=== PATIENT | male | born 1965 | race Two or more races ===

== ENCOUNTER 2020-02-23 19:37 | Inpatient (IN) | payer BC, OTHER ==
[~2020-02-23] VITALS: Ht 170.2 cm; Wt 94.5 kg
[~2020-02-23 19:37] MED LIST: ASPI-543 PO; OMEP20CA74 PO
[2020-02-23 20:52] LABS: Basophils # (auto) 0 10 ^3/uL (0-0.2); Basophils % (auto) 0.2 % (0.0-2.0); Eosinophils # (auto) 0 10 ^3/uL (0-0.8); Eosinophils % (auto) 0.4 % (0.0-7.0); Hematocrit 40.2 % (41.0-53.0); Lymphocytes # (auto) 0.5 10 ^3/uL (0.4-5.4); Lymphocytes % (auto) 5.9 % (10.0-50.0); Mean Corpuscular Hemoglobin 31.6 pg (28.0-32.0); Mean Corpuscular Hgb Conc. 34.7 g/dL (32.0-36.0); Mean Corpuscular Volume 91.1 fL (80.0-100.0); Monocytes # (auto) 0.7 10 ^3/uL (0-1.3); Monocytes % (auto) 7.6 % (0.0-12.0); Neutrophils # (auto) 7.8 10 ^3/uL (1.6-8.6); Neutrophils % (auto) 85.9 % (37.0-80.0); Platelet Count (auto) 310 10^3/uL (140-450); Red Blood Cells 4.41 10^6/uL (4.5-5.90); White Blood Cell 9.1 10^3/uL (4.4-10.8)
[2020-02-23 21:09] LABS: Alanine Aminotransferase 47 U/L (16-61); Albumin 3.1 g/dL (3.4-5.0); Anion Gap 8 (5-15); Aspartate Aminotransferase 37 U/L (15-37); Blood Urea Nitrogen 9 mg/dL (7-18); Calcium 8.3 mg/dL (8.5-10.1); Carbon Dioxide 25 mmol/L (21-32); Chloride 85 mmol/L (98-107); GFR African American 114 mL/min; GFR Non-African American 94 mL/min; Glucose 113 mg/dL (74-106); Potassium 4.7 mmol/L (3.5-5.1)
[2020-02-23 21:14] LABS: Alkaline Phosphatase 89 U/L (45-117); Bilirubin, Total 0.9 mg/dL (0.2-1.0); Total Protein 7.9 g/dL (6.4-8.2)
[2020-02-23 21:20] LABS: Sodium 118 mmol/L (136-145)
[2020-02-23] MEDS ORDERED: SODIUM CHLORIDE 0.9% 1,000 ML IVB ONE (21:30)
[2020-02-24] MEDS ORDERED: AZITHROMYCIN 500MG/ 250ML 250 ML IV ONE (00:30)
[2020-02-24] MEDS ORDERED: cefTRIAXone 1GM/50ML D5W 50 ML IV ONE (00:30)
[2020-02-24] MEDS ORDERED: ZINC SULFATE 220mg CAP or TAB PO ONE (00:45)
[2020-02-24] MEDS ORDERED: ASCORBIC ACID 500 MG TAB PO ONE (00:45)
[2020-02-24] MEDS ORDERED: POTASSIUM CHL 20 Meq TABLET PO ONE (01:45)
[2020-02-24] MEDS ORDERED: SODIUM CHLORIDE 0.9% 1,000 ML IV ONE (02:45)
[2020-02-24 03:13] LABS: INR 1.19 (0.9-1.15); Partial Thromboplastin Time 30.8 sec (23.0-31.2)
[2020-02-24] MEDS ORDERED: ALBUTEROL SULF 2.5 MG/0.5ML(0.5%) NEB SOLN NEB ONE (05:00)
[2020-02-24] MEDS ORDERED: IPRATROPIUM BROM 0.5 MG/2.5ML INH SOL NEB ONE (05:00)
[2020-02-24] MEDS ORDERED: ONDANSETRON HCL 4 MG/2 ML VIAL IV PRN (06:15)
[2020-02-24] MEDS ORDERED: MORPHINE SULF INJ 2 MG/ML SYRINGE 1ML IV PRN (06:15)
[2020-02-24] MEDS ORDERED: NITROGLYCERIN 0.4 MG SL TAB SL PRN (06:15)
[2020-02-24] MEDS ORDERED: SODIUM CHLORIDE 0.9% 1,000 ML IV SCH (06:15)
[2020-02-24] MEDS ORDERED: ACETAMINOPHEN 500 MG TAB PO PRN (06:15)
[2020-02-24] MEDS ORDERED: DOCUSATE SOD 100 MG CAP PO PRN (06:15)
[2020-02-24] MEDS: BUDESONIDE (INHALATION) 180 MCG IH IN SCH ×2 (10:00→22:00)
[2020-02-24] MEDS ORDERED: ENOXAPARIN SOD 40 MG/0.4 ML SYRINGE SC SCH (10:00)
[2020-02-24 10:26] LABS: Hematocrit 36.5 % (41.0-53.0); Mean Corpuscular Hemoglobin 33.2 pg (28.0-32.0); Mean Corpuscular Hgb Conc. 35.7 g/dL (32.0-36.0); Platelet Count (auto) 274 10^3/uL (140-450); Red Blood Cells 3.92 10^6/uL (4.5-5.90); Red Cell Distribution Width 13.1 % (11.8-14.3); White Blood Cell 13.1 10^3/uL (4.4-10.8)
[2020-02-24 10:38] LABS: Basophils % (manual) 0 (0.0-2.0); Blast Cells 0; Eosinophils % (manual) 0 (0-7); Myelocytes % 0; Promyelocytes % 0; Reactive Lymphocytes 0
[2020-02-24 11:21] LABS: Magnesium 2.1 mg/dL (1.6-2.6); Potassium 3.7 mmol/L (3.5-5.1)
[2020-02-24 12:36] LABS: Band Neutrophils % (manual) 14; Lymphocytes % (manual) 4 (10.0-50.0); Metamyelocytes % 2; Monocytes % (manual) 3 (0-12)
[2020-02-24] MEDS ORDERED: FUROSEMIDE 20 MG/2 ML VIAL IV ONE (13:15)
[2020-02-24] MEDS ORDERED: REMDESIVIR PER PHARMACY IV SCH (13:15)
[2020-02-24] MEDS: ALBUTEROL SULF HFA 90MCG INH 200DOSE IN SCH ×2 (14:00→22:00)
[2020-02-24] MEDS: ASCORBIC ACID 1,000 MG TAB PO SCH (17:00)
[2020-02-24] MEDS: PANTOPRAZOLE 40 MG/10 ML VIAL INJ IV SCH (17:00)
[2020-02-24] MEDS: DexAMETHasone SOD PHOS 10MG/1ML VIAL INJ IV SCH (17:00)
[2020-02-24] MEDS: CHOLECALCIFEROL (VITD3) 2,000 UNIT CAP PO SCH (17:00)
[2020-02-24] MEDS: MULTIPLE VITAMIN TAB PO SCH (17:00)
[2020-02-24] MEDS: ZINC SULFATE 220mg CAP or TAB PO SCH (17:00)
[2020-02-24] MEDS: DOXYCYCLINE 100MG/250ML 250 ML IV SCH ×2 (17:40→22:58)
[2020-02-24 21:36] LABS: Urine Bacteria NONE SEEN /hpf (None Seen); Urine Blood Negative /uL (Negative); Urine Specific Gravity 1.006 (1.001-1.035); Urine WBC 1 /hpf (0 - 3)
--- NOTE | 2020-02-24 21:42 | NUR ---
Pt was seen for mdi tx. Mdi txs not at bedside. Pharmacy left at 1930. Mdis will be held to day time. Pt is resting with no acute distress. Will continue to monitor.
[2020-02-24 21:51] LABS: Lactate Dehydrogenase 394 U/L (87-241); Magnesium 2.2 mg/dL (1.6-2.6)
[2020-02-24 22:01] LABS: CRP High Sensitivity > 19.0 mg/dL (< 0.3)
[2020-02-24] MEDS ORDERED: IOHEXOL 350 MG/ML 100ML IJ ONE (23:27)
[2020-02-25] VITALS (8 sets, daily range): BP systolic 135–150; BP diastolic 87–98
[2020-02-25] MEDS: BUDESONIDE (INHALATION) 180 MCG IH IN SCH ×2 (06:18→22:38)
[2020-02-25] MEDS: ALBUTEROL SULF HFA 90MCG INH 200DOSE IN SCH ×3 (06:18→22:38)
[2020-02-25 06:24] LABS: Basophils # (auto) 0 10 ^3/uL (0-0.2); Basophils % (auto) 0.4 % (0.0-2.0); Eosinophils # (auto) 0 10 ^3/uL (0-0.8); Eosinophils % (auto) 0.5 % (0.0-7.0); Hemoglobin 13.2 g/dL (13.5-17.5); Lymphocytes # (auto) 0.3 10 ^3/uL (0.4-5.4); Lymphocytes % (auto) 4.8 % (10.0-50.0); Mean Corpuscular Hemoglobin 31.8 pg (28.0-32.0); Mean Corpuscular Hgb Conc. 34.7 g/dL (32.0-36.0); Mean Corpuscular Volume 91.7 fL (80.0-100.0); Monocytes # (auto) 0.3 10 ^3/uL (0-1.3); Monocytes % (auto) 4.6 % (0.0-12.0); Neutrophils # (auto) 5.6 10 ^3/uL (1.6-8.6); Neutrophils % (auto) 89.7 % (37.0-80.0); Nucleated Red Blood Cells % 0.4 %; Platelet Count (auto) 305 10^3/uL (140-450); Red Blood Cells 4.14 10^6/uL (4.5-5.90); Red Cell Distribution Width 13.2 % (11.8-14.3); White Blood Cell 6.3 10^3/uL (4.4-10.8)
[2020-02-25 06:42] LABS: Albumin 2.8 g/dL (3.4-5.0); Calcium 8.9 mg/dL (8.5-10.1); Potassium 4.2 mmol/L (3.5-5.1)
[2020-02-25 06:45] LABS: BUN/Creatinine Ratio 11.3
[2020-02-25 06:47] LABS: Bilirubin, Total 0.9 mg/dL (0.2-1.0); Total Protein 7.6 g/dL (6.4-8.2)
--- NOTE | 2020-02-25 07:48 | NUR ---
COVID SWAB COLLECTED AND SENT TO LAB.
[2020-02-25] MEDS ORDERED: cefTRIAXone 1GM/50ML D5W 50 ML IV SCH (09:00)
[2020-02-25] MEDS: DOXYCYCLINE 100MG/250ML 250 ML IV SCH ×2 (09:56→22:20)
[2020-02-25] MEDS: PANTOPRAZOLE 40 MG/10 ML VIAL INJ IV SCH (09:56)
[2020-02-25] MEDS: cefTRIAXone 1GM/50ML D5W 50 ML IV SCH (09:56)
[2020-02-25] MEDS: DexAMETHasone SOD PHOS 10MG/1ML VIAL INJ IV SCH (09:56)
[2020-02-25] MEDS: ZINC SULFATE 220mg CAP or TAB PO SCH (09:56)
[2020-02-25] MEDS: ENOXAPARIN SOD 40 MG/0.4 ML SYRINGE SC SCH (09:57)
[2020-02-25] MEDS: CHOLECALCIFEROL (VITD3) 2,000 UNIT CAP PO SCH (09:57)
[2020-02-25] MEDS: ASCORBIC ACID 1,000 MG TAB PO SCH (09:57)
[2020-02-25] MEDS: MULTIPLE VITAMIN TAB PO SCH (09:57)
--- NOTE | 2020-02-25 11:26 | NUR ---
Anushka ANGULO AT BEDSIDE.
--- NOTE | 2020-02-25 13:18 | NUR ---
Respiratory note: PT SEEN, MDI HELD AT THIS TIME. HR WAS 157, RN AWARE, SPO2 94% ON 3L N/C.
--- NOTE | 2020-02-25 13:20 | NUR ---
Notified MD Mora of patients HR sustaining in the high 150's orders given will follow through with treatment.
[2020-02-25] MEDS ORDERED: METOPROLOL TARTRATE 1MG/1ML-5ML VIAL IV ONE (13:30)
--- NOTE | 2020-02-25 13:53 | NUR ---
SPOKE TO Anushka ANGULO. INFORMED OF EKGS PERFORMED AND OF EKG INTERPRETATION.
[2020-02-25] MEDS ORDERED: METOPROLOL TARTRATE 25 MG TAB PO ONE (14:00)
[2020-02-25] MEDS ORDERED: PROP60CA34 PO (14:01)
[2020-02-25] MEDS ORDERED: REMDESIVIR 200 MG in NS 210ml LOADING DOSE ADULT IV ONE (17:00)
[2020-02-25] MEDS: METOPROLOL TARTRATE 25 MG TAB PO SCH (22:20)
[2020-02-26] VITALS (9 sets, daily range): BP systolic 136–146; BP diastolic 84–95
[2020-02-26] MEDS: BUDESONIDE (INHALATION) 180 MCG IH IN SCH ×2 (06:16→22:00)
[2020-02-26] MEDS: ALBUTEROL SULF HFA 90MCG INH 200DOSE IN SCH ×3 (06:16→22:00)
--- NOTE | 2020-02-26 07:30 | NUR ---
Opening Shift Note Assumed patient care from NOC RN. Patient currently sitting up in bed, ready for breakfast. Patient assisted with repositioning and urinal was emptied of 400cc clear, yellow urine. Safety precautions in place, call light within reach. Will continue to monitor q1hr and PRN.
[2020-02-26 08:01] LABS: Basophils # (auto) 0 10 ^3/uL (0-0.2); Basophils % (auto) 0.1 % (0.0-2.0); Eosinophils # (auto) 0 10 ^3/uL (0-0.8); Hematocrit 36.6 % (41.0-53.0); Hemoglobin 12.6 g/dL (13.5-17.5); Lymphocytes # (auto) 0.4 10 ^3/uL (0.4-5.4); Lymphocytes % (auto) 4.4 % (10.0-50.0); Mean Corpuscular Hemoglobin 30.9 pg (28.0-32.0); Mean Corpuscular Hgb Conc. 34.3 g/dL (32.0-36.0); Mean Corpuscular Volume 90.1 fL (80.0-100.0); Monocytes # (auto) 0.6 10 ^3/uL (0-1.3); Monocytes % (auto) 6.3 % (0.0-12.0); Neutrophils # (auto) 8.7 10 ^3/uL (1.6-8.6); Neutrophils % (auto) 89.2 % (37.0-80.0); Platelet Count (auto) 381 10^3/uL (140-450); Red Blood Cells 4.06 10^6/uL (4.5-5.90); Red Cell Distribution Width 13.1 % (11.8-14.3); White Blood Cell 9.7 10^3/uL (4.4-10.8)
[2020-02-26 08:28] LABS: Potassium 3.2 mmol/L (3.5-5.1)
[2020-02-26 08:41] LABS: Albumin 2.6 g/dL (3.4-5.0); BUN/Creatinine Ratio 14.9; Bilirubin, Total 0.6 mg/dL (0.2-1.0); Calcium 8.4 mg/dL (8.5-10.1)
[2020-02-26] MEDS: cefTRIAXone 1GM/50ML D5W 50 ML IV SCH (09:30)
[2020-02-26] MEDS: ZINC SULFATE 220mg CAP or TAB PO SCH (09:31)
[2020-02-26] MEDS: PANTOPRAZOLE 40 MG/10 ML VIAL INJ IV SCH (09:31)
[2020-02-26] MEDS: DOXYCYCLINE 100MG/250ML 250 ML IV SCH ×2 (09:31→21:43)
[2020-02-26] MEDS: METOPROLOL TARTRATE 25 MG TAB PO SCH ×2 (09:31→21:56)
[2020-02-26] MEDS: DexAMETHasone SOD PHOS 10MG/1ML VIAL INJ IV SCH (09:31)
[2020-02-26] MEDS: MULTIPLE VITAMIN TAB PO SCH (09:32)
[2020-02-26] MEDS: CHOLECALCIFEROL (VITD3) 2,000 UNIT CAP PO SCH (09:32)
[2020-02-26] MEDS: ENOXAPARIN SOD 40 MG/0.4 ML SYRINGE SC SCH (09:32)
[2020-02-26] MEDS: ASCORBIC ACID 1,000 MG TAB PO SCH (09:32)
--- NOTE | 2020-02-26 12:04 | NUR ---
at Bedside Dr. Finley at bedside. No new orders at this time.
--- NOTE | 2020-02-26 12:20 | NUR ---
at Bedside Dr. Yen at bedside. No new orders at this time.
[2020-02-26] MEDS ORDERED: POTASSIUM CHL 20 Meq TABLET PO ONE (12:45)
[2020-02-26] MEDS ORDERED: FUROSEMIDE 20 MG/2 ML VIAL IV ONE (12:45)
[2020-02-26] MEDS: REMDESIVIR 100mg in NS 230ml DAILYx4DAYS (NO VENT) IV SCH (17:33)
--- NOTE | 2020-02-26 19:01 | NUR ---
Remdesivir Medication adminstration startin/82 HR 97 15 minute reassessment 133/84 HR 64 End: 121/85 HR 92
--- NOTE | 2020-02-26 19:30 | NUR ---
Opening Shift Note Assumed care of patient, awake and alert. No S/S of distress/SOB or pain noted. Instructed on POC and to call for assist PRN. Bed is in lowest locked position with bed rails up x2 and call light is within reach of the patient.
[2020-02-27 05:00] VITALS: BP 128/71
[2020-02-27] MEDS: BUDESONIDE (INHALATION) 180 MCG IH IN SCH ×2 (05:56→21:45)
[2020-02-27] MEDS: ALBUTEROL SULF HFA 90MCG INH 200DOSE IN SCH ×3 (05:56→21:45)
[2020-02-27 06:32] LABS: Potassium 4.1 mmol/L (3.5-5.1)
[2020-02-27 06:37] LABS: BUN/Creatinine Ratio 17.9; Calcium 8.5 mg/dL (8.5-10.1)
--- NOTE | 2020-02-27 07:30 | NUR ---
Opening Shift Note Assumed patient care from OLIVIA GAVIN. Patient currently out of bed to use restroom. Patient denies shortness of breath at this time. Respirations are even and unlabored at 2L. Safety precautions in place. Will continue to monitor q1hr and PRN. Addendum: 02/27/20 at 0809 by ILIA LAYNE RN RN Patient AOx4, ambulates independently. Patient currently sitting up in bed, feet dangling.
[2020-02-27 08:46] VITALS: BP 133/79
[2020-02-27] MEDS: PANTOPRAZOLE 40 MG/10 ML VIAL INJ IV SCH (09:49)
[2020-02-27] MEDS: DexAMETHasone SOD PHOS 10MG/1ML VIAL INJ IV SCH (09:49)
[2020-02-27] MEDS: ZINC SULFATE 220mg CAP or TAB PO SCH (09:50)
[2020-02-27] MEDS: DOXYCYCLINE 100MG/250ML 250 ML IV SCH (09:50)
[2020-02-27] MEDS: ASCORBIC ACID 1,000 MG TAB PO SCH (09:51)
[2020-02-27] MEDS: MULTIPLE VITAMIN TAB PO SCH (09:51)
[2020-02-27] MEDS: ENOXAPARIN SOD 40 MG/0.4 ML SYRINGE SC SCH (09:51)
[2020-02-27] MEDS: METOPROLOL TARTRATE 25 MG TAB PO SCH ×2 (09:51→22:01)
[2020-02-27] MEDS: CHOLECALCIFEROL (VITD3) 2,000 UNIT CAP PO SCH (09:52)
--- NOTE | 2020-02-27 12:12 | NUR ---
New IV New IV started on right forearm, 22 gauge on second attempt. Patient tolerated well. No signs of distress. Safety precautions in place, will continue to monitor q1hr and PRN.
[2020-02-27 12:24] VITALS: BP 132/83
--- NOTE | 2020-02-27 14:20 | NUR ---
Nutrition Assessment Notes Please refer to link for full assessment notes. Est Energy needs: 5608-3650 kcals (17-20 kcal/kgBW) Est Protein needs: 75-94 gms/day (0.8-1.0 gm/kgBW) Will continue to monitor and reassess prn. Addendum: 02/27/20 at [address] Amended: Links added.
[2020-02-27] MEDS: REMDESIVIR 100mg in NS 230ml DAILYx4DAYS (NO VENT) IV SCH (16:56)
[2020-02-27 16:59] VITALS: BP 136/81
--- NOTE | 2020-02-27 17:05 | NUR ---
Remdesivir Medication Administered. Starting BP 134/78 HR 91 15 minute reassessment: 133/78 HR 89 End: 133/87 HR 83
--- NOTE | 2020-02-27 19:07 | NUR ---
Called [facility] Spoke to LOKESH Faustin. Patient fruit picker time approximately 2200. Addendum: 02/27/20 at 191 by ILIA LAYNE RN RN Wrong patient.
[2020-02-27] MEDS: DOXYCYCLINE 100 MG TAB/CAP PO SCH (21:54)
[2020-02-27 23:22] VITALS: BP 139/87
--- NOTE | 2020-02-28 03:00 | NUR ---
ASSUMED CARE. RECEIVED REPORT FROM LESLYE MORILLO. PATIENT RESTING IN BED , NO DISTRESS NOTED. WILL CONTINUE TO MONITOR.
[2020-02-28 03:30] VITALS: BP 139/87
[2020-02-28 05:53] VITALS: BP 139/92
[2020-02-28] MEDS: BUDESONIDE (INHALATION) 180 MCG IH IN SCH ×2 (06:19→20:26)
[2020-02-28] MEDS: ALBUTEROL SULF HFA 90MCG INH 200DOSE IN SCH ×3 (06:20→20:26)
[2020-02-28 06:25] LABS: Albumin 2.7 g/dL (3.4-5.0); Calcium 8.4 mg/dL (8.5-10.1); Potassium 4.2 mmol/L (3.5-5.1)
[2020-02-28 06:46] LABS: BUN/Creatinine Ratio 16.9; Bilirubin, Total 0.6 mg/dL (0.2-1.0); CRP High Sensitivity 3.39 mg/dL (< 0.3); Total Protein 6.5 g/dL (6.4-8.2)
[2020-02-28 06:47] LABS: Hematocrit 36.8 % (41.0-53.0); Hemoglobin 12.8 g/dL (13.5-17.5); Mean Corpuscular Hemoglobin 32.1 pg (28.0-32.0); Mean Corpuscular Hgb Conc. 34.9 g/dL (32.0-36.0); Mean Corpuscular Volume 91.9 fL (80.0-100.0); Platelet Count (auto) 434 10^3/uL (140-450); White Blood Cell 8.5 10^3/uL (4.4-10.8)
[2020-02-28 06:49] LABS: Basophils % (manual) 0 (0.0-2.0); Blast Cells 0; Metamyelocytes % 0; Promyelocytes % 0; Reactive Lymphocytes 0
[2020-02-28 08:17] LABS: Band Neutrophils % (manual) 6; Eosinophils % (manual) 1 (0-7); Lymphocytes % (manual) 12 (10.0-50.0); Monocytes % (manual) 6 (0-12); Myelocytes % 1
[2020-02-28 08:55] VITALS: BP 136/86
[2020-02-28] MEDS: ZINC SULFATE 220mg CAP or TAB PO SCH (11:08)
[2020-02-28] MEDS: DexAMETHasone SOD PHOS 10MG/1ML VIAL INJ IV SCH (11:08)
[2020-02-28] MEDS: METOPROLOL TARTRATE 25 MG TAB PO SCH ×2 (11:08→22:51)
[2020-02-28] MEDS: MULTIPLE VITAMIN TAB PO SCH (11:08)
[2020-02-28] MEDS: ENOXAPARIN SOD 40 MG/0.4 ML SYRINGE SC SCH (11:09)
[2020-02-28] MEDS: CHOLECALCIFEROL (VITD3) 2,000 UNIT CAP PO SCH (11:09)
[2020-02-28] MEDS: DOXYCYCLINE 100 MG TAB/CAP PO SCH ×2 (11:09→22:51)
[2020-02-28] MEDS: ASCORBIC ACID 1,000 MG TAB PO SCH (11:09)
[2020-02-28] MEDS: PANTOPRAZOLE 40 MG TAB PO SCH (11:09)
[2020-02-28] MEDS ORDERED: FUROSEMIDE 20 MG/2 ML VIAL IV ONE (12:00)
[2020-02-28] MEDS ORDERED: POTASSIUM CHL 20 Meq TABLET PO ONE (12:00)
[2020-02-28 12:43] VITALS: BP 132/87
[2020-02-28 17:00] VITALS: BP 118/82
--- NOTE | 2020-02-28 17:44 | NUR ---
REMDESIVIR REMDESIVIR INITIATED. VITALS STABLE BP 118/82, HR106, O2 95% ON 2L NC. WILL CONTINUE TO MONITOR.
[2020-02-28] MEDS: REMDESIVIR 100mg in NS 230ml DAILYx4DAYS (NO VENT) IV SCH (17:45)
--- NOTE | 2020-02-28 18:03 | NUR ---
REMDESIVIR 15 MINUTE VITAL CHECK BP 133/86, HR 106 O2 97% ON 2L NC. PATIENT TOLERATING MEDICATION WELL. WILL CONTINUE TO MONITOR.
--- NOTE | 2020-02-28 18:46 | NUR ---
REMDESIVIR REMDESIVIR ENDED. IV FLUSHED WITH 30 ML OF SALINE PER POLICY. PATIENT TOLERATED IT WELL. VITALS BP 125/83 HR 101 O2 96% ON 2L NC.
--- NOTE | 2020-02-28 20:00 | NUR ---
Patient ambulating with steady, even gait.
[2020-02-28 22:00] VITALS: BP 118/75
[2020-02-29] VITALS (7 sets, daily range): BP systolic 120–140; BP diastolic 78–84
[2020-02-29] MEDS: ALBUTEROL SULF HFA 90MCG INH 200DOSE IN SCH (06:04)
[2020-02-29] MEDS: BUDESONIDE (INHALATION) 180 MCG IH IN SCH ×2 (06:05→20:06)
[2020-02-29 06:11] LABS: BUN/Creatinine Ratio 19.7; Calcium 8.6 mg/dL (8.5-10.1); Potassium 3.9 mmol/L (3.5-5.1)
--- NOTE | 2020-02-29 07:30 | NUR ---
RECEIVED REPORT FROM NIGHT NURSE. PATIENT RESTING IN BED, NO DISTRESS NOTED. WILL CONTINUE TO MONITOR.
[2020-02-29] MEDS: ASCORBIC ACID 1,000 MG TAB PO SCH (10:37)
[2020-02-29] MEDS: DOXYCYCLINE 100 MG TAB/CAP PO SCH ×2 (10:38→21:22)
[2020-02-29] MEDS: ZINC SULFATE 220mg CAP or TAB PO SCH (10:39)
[2020-02-29] MEDS: CHOLECALCIFEROL (VITD3) 2,000 UNIT CAP PO SCH (10:40)
[2020-02-29] MEDS: MULTIPLE VITAMIN TAB PO SCH (10:40)
[2020-02-29] MEDS: DexAMETHasone 4 MG TAB PO SCH (10:42)
[2020-02-29] MEDS: PANTOPRAZOLE 40 MG TAB PO SCH (10:43)
[2020-02-29] MEDS: METOPROLOL TARTRATE 25 MG TAB PO SCH ×2 (10:46→21:21)
[2020-02-29] MEDS: ENOXAPARIN SOD 40 MG/0.4 ML SYRINGE SC SCH (10:47)
[2020-02-29] MEDS: REMDESIVIR 100mg in NS 230ml DAILYx4DAYS (NO VENT) IV SCH (17:00)
--- NOTE | 2020-02-29 18:30 | NUR ---
REMDESIVIR ENDED. IV FLUSHED WITH 30 ML OF SALINE PER POLICY. PATIENT TOLERATED IT WELL. VITALS 97.5 124/84 91 99% on 2L .
[2020-02-29] MEDS: ALBUTEROL SULF HFA 90MCG INH 200DOSE IN PRN (20:06)
[2020-03-01 06:34] LABS: Potassium 4.3 mmol/L (3.5-5.1)
[2020-03-01 06:41] LABS: Albumin 2.8 g/dL (3.4-5.0); BUN/Creatinine Ratio 21.3; Bilirubin, Total 0.7 mg/dL (0.2-1.0); Calcium 8.4 mg/dL (8.5-10.1); Total Protein 6.6 g/dL (6.4-8.2)
[2020-03-01] MEDS: ALBUTEROL SULF HFA 90MCG INH 200DOSE IN PRN (06:52)
[2020-03-01] MEDS: BUDESONIDE (INHALATION) 180 MCG IH IN SCH (06:52)
[2020-03-01 07:01] VITALS: BP 149/99
[2020-03-01 08:50] VITALS: BP 123/80
[2020-03-01] MEDS: ENOXAPARIN SOD 40 MG/0.4 ML SYRINGE SC SCH (12:20)
[2020-03-01] MEDS: ZINC SULFATE 220mg CAP or TAB PO SCH (12:21)
[2020-03-01] MEDS: CHOLECALCIFEROL (VITD3) 2,000 UNIT CAP PO SCH (12:21)
[2020-03-01] MEDS: DexAMETHasone 4 MG TAB PO SCH (12:23)
[2020-03-01] MEDS: PANTOPRAZOLE 40 MG TAB PO SCH (12:23)
[2020-03-01] MEDS: METOPROLOL TARTRATE 25 MG TAB PO SCH (12:23)
[2020-03-01] MEDS: MULTIPLE VITAMIN TAB PO SCH (12:24)
[2020-03-01] MEDS: ASCORBIC ACID 1,000 MG TAB PO SCH (12:25)
[2020-03-01] MEDS: DOXYCYCLINE 100 MG TAB/CAP PO SCH (12:26)
[2020-03-01 13:20] VITALS: BP 149/84
--- NOTE | 2020-03-01 14:31 | NUR ---
Assessment Patient is a 54-year-old male. Unable to speak to patient. Assessment was completed with patient son Cain Turner Prior to admission patient reside home with family and functioned independently. Patient does not have any medical equipment now. Prior to admission patient was able to care for his own ADL's. Patient will return home to his prior living arrangements post discharge and family will transport him home. Advised Cain Turner there is a social service consult for home oxygen at 2 l/ min. Informed Cain Turner MD order has been faxed to [facility] and they will deliver oxygen portable to front lobby and concentrate oxygen to home. Informed Cain Turner he has the right to participate in all discharge planning. Cain Turner verbalized understanding. Per Cecelia with [facility] order has been received and they will deliver portable oxygen by 17:30 to the front lobby and concentrate oxygen to patient home. Addendum: 03/01/20 at 1438 by TORI HAY Amended: Links added.
--- NOTE | 2020-03-01 14:34 | NUR ---
Nutrition Followup Notes Pt wt is 94.5 kg Pt is positive for COVID, in isolation. Pt is with a CCHO 60g diet, appetite is good aeb 100% x 5 PO intake per RN doc. Est Energy needs: 2087-2370 kcals (17-20 kcal/kgBW) Est Protein needs: 75-94 gms/day (0.8-1.0 gm/kgBW) Will continue to monitor and reassess prn. LABS: CA 8.4 L, AST 40 H, ALT 125 H, ALB 2.8 L GI: Pt had 1 BM on 02/28 per RN doc BS: 20 low risk. Refer to wound assessment report for further details PES: 1) Obesity r/t energy intake in excess of energy needs aeb BMI of 32.6 kg/m2 2) Altered nutrition related lab values r/t current medical condition aeb hyperglycemia,hypoalbuminemia, elev LFTs Comments Will continue to monitor PO status, skin status, pertinent labs and weight trends. Will f/u in 3-5 days 1) Continue to closely monitor pt PO intake to meet at least 75% of meals 2) Continue current plan of care
[2020-03-01 14:48] VITALS: BP 123/80
[2020-03-01 17:25] VITALS: BP 118/77
--- NOTE | 2020-03-01 19:27 | NUR ---
Opening Shift Note Assumed care of patient after receiving report from LESLYE Flores. Patient is awake and alert with no S/S of pain or distress. Bed in lowest locked position x2 side rails up for safety, HOB semi fowlers, patient on NC at 2 L. Instructed on POC and to call for assist PRN, will continue to monitor for changes Q1hr and PRN.
--- NOTE | 2020-03-01 19:45 | NUR ---
Patient off unit D/C Patient off unit at this time. All discharge paperwork complete and instructions with patient. All belongings with patient including oxygen.
== END 2020-03-01 19:45 | disposition home or self-care (01) | DRG 177 ==
LOC: ER 19:37 → TELE 19:38 → TELE-EAST 02-24 23:42
PROVIDERS: ADMIT Nurse Practitioner Family; ATTEND Internal Medicine
PROC: XW033E5 Introduction of Remdesivir Anti-infective into Peripheral Vein, Percutaneous Approach, New Technology Group 5 (ICD-10-PCS; principal; 2020-02-23)
PROC: XW13325 Transfusion of Convalescent Plasma (Nonautologous) into Peripheral Vein, Percutaneous Approach, New Technology Group 5 (ICD-10-PCS; 2020-02-23)
DX: U07.1 COVID-19 (principal); J12.89 Other viral pneumonia; J96.01 Acute respiratory failure with hypoxia; E87.1 Hypo-osmolality and hyponatremia; D68.69 Other thrombophilia; E66.9 Obesity, unspecified; F17.210 Nicotine dependence, cigarettes, uncomplicated; I10 Essential (primary) hypertension; K21.9 Gastro-esophageal reflux disease without esophagitis; K76.0 Fatty (change of) liver, not elsewhere classified; Z79.82 Long term (current) use of aspirin; Z82.49 Family history of ischemic heart disease and other diseases of the circulatory system; Z83.3 Family history of diabetes mellitus; Z68.32 Body mass index [BMI] 32.0-32.9, adult
CPT/HCPCS: 36415; 71045; 71275; 80048; 80053; 81001; 82728; 83036; 83615; 83735; 83880; 84295; 84300; 84443; 84484; 85007; 85025; 85027; 85379; 85610; 85730; 86141; 86850; 86900; 86901; 87040; 87426; 93005; 94640; 96365; 96375; C9113; G0378; J0696; J1100; J3490

== ENCOUNTER 2022-04-07 02:53 | Emergency (ER) | payer BC ==
[~2022-04-07] VITALS: Ht 170.2 cm; Wt 103.2 kg
[~2022-04-07 02:53] MED LIST changes: +PROP60CA34 PO
[2022-04-07 03:27] LABS: Basophils # (auto) 0.1 10 ^3/uL (0-0.2); Basophils % (auto) 0.6 % (0.0-2.0); Eosinophils # (auto) 0.5 10 ^3/uL (0-0.8); Eosinophils % (auto) 4.8 % (0.0-7.0); Hematocrit 43.8 % (41.0-53.0); Hemoglobin 15.6 g/dL (13.5-17.5); Lymphocytes # (auto) 1.7 10 ^3/uL (0.4-5.4); Lymphocytes % (auto) 16.7 % (10.0-50.0); Mean Corpuscular Hemoglobin 32.5 pg (28.0-32.0); Mean Corpuscular Hgb Conc. 35.7 g/dL (32.0-36.0); Mean Corpuscular Volume 91.1 fL (80.0-100.0); Monocytes # (auto) 0.8 10 ^3/uL (0-1.3); Monocytes % (auto) 8.2 % (0.0-12.0); Neutrophils # (auto) 6.9 10 ^3/uL (1.6-8.6); Neutrophils % (auto) 69.7 % (37.0-80.0); Red Cell Distribution Width 13.3 % (11.8-14.3); White Blood Cell 9.9 10^3/uL (4.4-10.8)
[2022-04-07 03:33] LABS: Albumin 4.6 g/dL (3.4-5.0); Calcium 9.4 mg/dL (8.5-10.1); Magnesium 2.3 mg/dL (1.6-2.6); Potassium 4.5 mmol/L (3.5-5.1)
[2022-04-07 03:35] LABS: BUN/Creatinine Ratio 11.4; INR 1.05 (0.9-1.15); Partial Thromboplastin Time 28.6 sec (24.6-33.4)
[2022-04-07 03:38] LABS: Bilirubin, Total 0.7 mg/dL (0.2-1.0); Total Protein 7.8 g/dL (6.4-8.2)
[2022-04-07] MEDS ORDERED: ASPirin-EC 325mg tab PO ONE (03:45)
[2022-04-07] MEDS ORDERED: CYCL-838 PO (05:11)
[2022-04-07] MEDS ORDERED: IBUP800T27 PO (05:11)
[2022-04-07 05:50] VITALS: BP 135/72
== END 2022-04-07 05:51 | disposition home or self-care (01) ==
LOC: ER 02:53
DX: R07.89 Other chest pain (principal); I10 Essential (primary) hypertension; K21.9 Gastro-esophageal reflux disease without esophagitis; F17.210 Nicotine dependence, cigarettes, uncomplicated; Z79.899 Other long term (current) drug therapy
CPT/HCPCS: 36415; 71045; 80053; 83735; 83880; 84484; 85025; 85610; 85730; 93005

== ENCOUNTER 2022-06-19 16:09 | Emergency (ER) | payer BC ==
[~2022-06-19] VITALS: Ht 170.2 cm; Wt 99.5 kg
[~2022-06-19 16:09] MED LIST changes: +CYCL-838 PO; +IBUP800T27 PO
[2022-06-19 17:06] VITALS: BP 142/97
== END 2022-06-19 17:16 | disposition home or self-care (01) ==
LOC: ER 16:09
DX: R33.9 Retention of urine, unspecified (principal); R31.9 Hematuria, unspecified; K21.9 Gastro-esophageal reflux disease without esophagitis; I10 Essential (primary) hypertension; F17.210 Nicotine dependence, cigarettes, uncomplicated
CPT/HCPCS: 51702

== ENCOUNTER 2022-06-22 09:43 | Inpatient (IN) | payer BC ==
[~2022-06-22] VITALS: Ht 170.2 cm; Wt 99.7 kg
[2022-06-22 11:04] LABS: Basophils # (auto) 0 10 ^3/uL (0-0.2); Basophils % (auto) 0.1 % (0.0-2.0); Eosinophils # (auto) 0 10 ^3/uL (0-0.8); Eosinophils % (auto) 0.2 % (0.0-7.0); Hematocrit 42.5 % (41.0-53.0); Hemoglobin 14.4 g/dL (13.5-17.5); Lymphocytes # (auto) 0.4 10 ^3/uL (0.4-5.4); Lymphocytes % (auto) 2.5 % (10.0-50.0); Mean Corpuscular Hemoglobin 31.3 pg (28.0-32.0); Mean Corpuscular Hgb Conc. 33.9 g/dL (32.0-36.0); Mean Corpuscular Volume 92.4 fL (80.0-100.0); Monocytes # (auto) 0.9 10 ^3/uL (0-1.3); Monocytes % (auto) 5.9 % (0.0-12.0); Neutrophils # (auto) 13.5 10 ^3/uL (1.6-8.6); Neutrophils % (auto) 91.3 % (37.0-80.0); Red Cell Distribution Width 13.3 % (11.8-14.3); White Blood Cell 14.8 10^3/uL (4.4-10.8)
[2022-06-22 11:16] LABS: Urine Bacteria FEW /hpf (None Seen); Urine Blood 3+ /uL (Negative); Urine Mucus FEW (None Seen); Urine Specific Gravity 1.029 (1.001-1.035); Urine WBC 62 /hpf (0 - 3)
[2022-06-22 11:55] LABS: Potassium 4.2 mmol/L (3.5-5.1)
[2022-06-22 12:11] LABS: Albumin 3.6 g/dL (3.4-5.0); BUN/Creatinine Ratio 14.7 (10.0-20.0); Bilirubin, Total 1.4 mg/dL (0.2-1.0); Calcium 9.1 mg/dL (8.5-10.1); Total Protein 7.6 g/dL (6.4-8.2)
[2022-06-22] MEDS ORDERED: SODIUM CHLORIDE 0.9% 1,000 ML IV ONE (12:15)
[2022-06-22] MEDS ORDERED: cefTRIAXone 1GM/50ML D5W 50 ML IV ONE (12:15)
[2022-06-22] MEDS ORDERED: MORPHINE SULFATE INJ 2 MG/ml SYRG IV PRN (13:45)
[2022-06-22] MEDS ORDERED: ACETAMINOPHEN 325 MG TAB PO PRN (13:45)
[2022-06-22] MEDS ORDERED: TAMS0.4C36 PO (14:48)
[2022-06-22] MEDS: SODIUM CHLORIDE 0.9% 1,000 ML IV SCH ×2 (15:23→23:48)
[2022-06-22 15:30] LABS: Cholesterol 97 mg/dL (< 200); HDL Cholesterol 55 mg/dL (40-59); LDL Cholesterol 43 mg/dL (< 100); Triglycerides 66 mg/dL (< 150)
[2022-06-22] MEDS: OXYBUTYNIN CHL 5 MG TAB PO SCH (22:19)
[2022-06-22] MEDS: HYDROcodone-ACET 5/325MG TAB PO PRN (23:52)
[2022-06-23 06:40] LABS: Basophils # (auto) 0 10 ^3/uL (0-0.2); Basophils % (auto) 0.2 % (0.0-2.0); Eosinophils # (auto) 0 10 ^3/uL (0-0.8); Eosinophils % (auto) 0.1 % (0.0-7.0); Hematocrit 38.8 % (41.0-53.0); Hemoglobin 13.9 g/dL (13.5-17.5); Lymphocytes # (auto) 0.5 10 ^3/uL (0.4-5.4); Lymphocytes % (auto) 4.9 % (10.0-50.0); Mean Corpuscular Hemoglobin 32.3 pg (28.0-32.0); Mean Corpuscular Hgb Conc. 35.8 g/dL (32.0-36.0); Mean Corpuscular Volume 90.3 fL (80.0-100.0); Monocytes # (auto) 0.9 10 ^3/uL (0-1.3); Monocytes % (auto) 8.6 % (0.0-12.0); Neutrophils # (auto) 9.5 10 ^3/uL (1.6-8.6); Neutrophils % (auto) 86.2 % (37.0-80.0); Red Cell Distribution Width 13.6 % (11.8-14.3)
[2022-06-23] MEDS: SODIUM CHLORIDE 0.9% 1,000 ML IV SCH ×3 (06:45→22:59)
[2022-06-23 07:06] LABS: Potassium 4.1 mmol/L (3.5-5.1)
[2022-06-23 07:19] LABS: Albumin 3.3 g/dL (3.4-5.0); BUN/Creatinine Ratio 13.6 (10.0-20.0); Bilirubin, Total 1.3 mg/dL (0.2-1.0); Calcium 8.3 mg/dL (8.5-10.1); Total Protein 7.2 g/dL (6.4-8.2)
[2022-06-23] MEDS: cefTRIAXone 1GM/50ML D5W 50 ML IV SCH (09:00)
[2022-06-23] MEDS: ASPirin-EC 81 mg tab PO SCH (10:17)
[2022-06-23] MEDS: OXYBUTYNIN CHL 5 MG TAB PO SCH ×2 (10:17→22:30)
[2022-06-23] MEDS: TAMSULOSIN HYDROCHLORIDE 0.4 MG CAP PO SCH (10:18)
[2022-06-23] MEDS: ENOXAPARIN SOD 40 MG/0.4 ML SYRINGE SC SCH (10:28)
[2022-06-23] MEDS: PROPRANOLOL HCL 20 MG TAB PO SCH (10:31)
[2022-06-23] MEDS: HYDROcodone-ACET 5/325MG TAB PO PRN (15:26)
[2022-06-23 20:34] VITALS: BP 132/89
[2022-06-23 22:00] VITALS: BP 144/81
[2022-06-24] MEDS ORDERED: OXYB5TAB24 PO (00:48)
[2022-06-24 05:00] VITALS: BP 124/82
[2022-06-24] MEDS: SODIUM CHLORIDE 0.9% 1,000 ML IV SCH ×3 (06:44→14:53)
[2022-06-24 09:00] VITALS: BP 127/83
[2022-06-24] MEDS: cefTRIAXone 1GM/50ML D5W 50 ML IV SCH (09:38)
[2022-06-24] MEDS: OXYBUTYNIN CHL 5 MG TAB PO SCH ×2 (09:40→22:03)
[2022-06-24] MEDS: TAMSULOSIN HYDROCHLORIDE 0.4 MG CAP PO SCH (09:40)
[2022-06-24] MEDS: PROPRANOLOL HCL 20 MG TAB PO SCH (09:40)
[2022-06-24] MEDS: ASPirin-EC 81 mg tab PO SCH (09:40)
[2022-06-24] MEDS: ENOXAPARIN SOD 40 MG/0.4 ML SYRINGE SC SCH (09:40)
[2022-06-24 13:00] VITALS: BP 116/81
[2022-06-24 17:00] VITALS: BP 134/85
[2022-06-24 22:00] VITALS: BP 122/84
[2022-06-25 05:00] VITALS: BP 139/86
[2022-06-25] MEDS: SODIUM CHLORIDE 0.9% 1,000 ML IV SCH ×2 (06:45→14:46)
[2022-06-25] MEDS: ENOXAPARIN SOD 40 MG/0.4 ML SYRINGE SC SCH (09:40)
[2022-06-25] MEDS: PROPRANOLOL HCL 20 MG TAB PO SCH (09:40)
[2022-06-25] MEDS: ASPirin-EC 81 mg tab PO SCH (09:41)
[2022-06-25] MEDS: TAMSULOSIN HYDROCHLORIDE 0.4 MG CAP PO SCH (09:41)
[2022-06-25] MEDS: OXYBUTYNIN CHL 5 MG TAB PO SCH (09:41)
[2022-06-25 09:43] VITALS: BP 155/87
[2022-06-25] MEDS ORDERED: ERTAPENEM SOD INJ 1 GM in SODIUM CHL 0.9% 50 ML IV SCH (10:00)
[2022-06-25 13:11] VITALS: BP 139/87
[2022-06-25 16:18] VITALS: BP 131/78
[2022-06-25 16:31] VITALS: BP 131/78
== END 2022-06-25 17:00 | disposition home health service (06) | DRG 872 ==
LOC: ER 09:43 → TELE 13:43 → TELE-EAST 06-23 19:35
PROVIDERS: ADMIT Registered Nurse; ATTEND Internal Medicine
PROC: 05HC33Z Insertion of Infusion Device into Left Basilic Vein, Percutaneous Approach (ICD-10-PCS; principal; 2022-06-25)
PROC: B54NZZA Ultrasonography of Left Upper Extremity Veins, Guidance (ICD-10-PCS; 2022-06-25)
DX: A41.51 Sepsis due to Escherichia coli [E. coli] (principal); N39.0 Urinary tract infection, site not specified; Z16.12 Extended spectrum beta lactamase (ESBL) resistance; E66.9 Obesity, unspecified; I10 Essential (primary) hypertension; N20.0 Calculus of kidney; B96.20 Unspecified Escherichia coli [E. coli] as the cause of diseases classified elsewhere; Z20.822 Contact with and (suspected) exposure to COVID-19; F17.210 Nicotine dependence, cigarettes, uncomplicated; N40.0 Benign prostatic hyperplasia without lower urinary tract symptoms; Z78.9 Other specified health status; Z82.49 Family history of ischemic heart disease and other diseases of the circulatory system; Z83.3 Family history of diabetes mellitus; Z68.34 Body mass index [BMI] 34.0-34.9, adult
CPT/HCPCS: 36415; 71045; 74176; 80053; 80061; 81001; 83036; 83605; 84443; 84484; 85025; 87040; 87086; 87426; G0378; J0696; J1335

== ENCOUNTER 2022-07-06 11:45 | Emergency (ER) | payer BC ==
[~2022-07-06] VITALS: Ht 167.6 cm; Wt 94.9 kg
[~2022-07-06 11:45] MED LIST changes: +OXYB5TAB24 PO; +TAMS0.4C36 PO
[2022-07-06 17:40] VITALS: BP 135/79
== END 2022-07-06 17:46 | disposition home or self-care (01) ==
LOC: ER 11:45
DX: T82.898A Other specified complication of vascular prosthetic devices, implants and grafts, initial encounter (principal); K21.9 Gastro-esophageal reflux disease without esophagitis; F17.210 Nicotine dependence, cigarettes, uncomplicated; Z79.899 Other long term (current) drug therapy; Z88.6 Allergy status to analgesic agent; Z87.442 Personal history of urinary calculi
CPT/HCPCS: 93971

== ENCOUNTER 2022-07-15 18:57 | Emergency (ER) | payer BC ==
[~2022-07-15] VITALS: Ht 170.2 cm; Wt 95.0 kg
[2022-07-15 21:22] LABS: Basophils # (auto) 0.2 10 ^3/uL (0-0.2); Basophils % (auto) 2.5 % (0.0-2.0); Eosinophils # (auto) 0.5 10 ^3/uL (0-0.8); Eosinophils % (auto) 6.9 % (0.0-7.0); Hematocrit 39.8 % (41.0-53.0); Hemoglobin 13.8 g/dL (13.5-17.5); Lymphocytes % (auto) 12.8 % (10.0-50.0); Mean Corpuscular Hemoglobin 31.1 pg (28.0-32.0); Mean Corpuscular Hgb Conc. 34.6 g/dL (32.0-36.0); Mean Corpuscular Volume 89.9 fL (80.0-100.0); Monocytes # (auto) 0.6 10 ^3/uL (0-1.3); Monocytes % (auto) 7.8 % (0.0-12.0); Neutrophils # (auto) 5.5 10 ^3/uL (1.6-8.6); Nucleated Red Blood Cells % 0.1 %; Red Blood Cells 4.43 10^6/uL (4.5-5.90); Red Cell Distribution Width 13.6 % (11.8-14.3); White Blood Cell 7.8 10^3/uL (4.4-10.8)
[2022-07-15 22:07] LABS: Potassium 4.6 mmol/L (3.5-5.1)
[2022-07-15 22:12] LABS: Albumin 3.9 g/dL (3.4-5.0); BUN/Creatinine Ratio 12.2 (10.0-20.0); Calcium 9.6 mg/dL (8.5-10.1)
[2022-07-15 22:17] LABS: Bilirubin, Total 0.6 mg/dL (0.2-1.0); Total Protein 7.4 g/dL (6.4-8.2)
[2022-07-16 03:00] VITALS: BP 111/61
== END 2022-07-16 03:50 | disposition home or self-care (01) ==
LOC: ER 18:57
DX: T78.40XA Allergy, unspecified, initial encounter (principal); M79.89 Other specified soft tissue disorders; L50.9 Urticaria, unspecified; K21.9 Gastro-esophageal reflux disease without esophagitis; I10 Essential (primary) hypertension; F17.210 Nicotine dependence, cigarettes, uncomplicated; Z87.442 Personal history of urinary calculi; Z79.899 Other long term (current) drug therapy; Z79.82 Long term (current) use of aspirin; X58.XXXA Exposure to other specified factors, initial encounter
CPT/HCPCS: 36415; 71045; 80053; 83690; 84484; 85025; 93970

== ENCOUNTER → 2023-02-15 | Outpatient (CLI) | payer BC ==
[~2023-02-15] MED LIST changes: +IBUP-1456 PO; -IBUP800T27 PO
== END | disposition home or self-care (01) ==
LOC: LAB 10:39
PROVIDERS: ATTEND Student in an Organized Health Care Education/Training Program
DX: N40.0 Benign prostatic hyperplasia without lower urinary tract symptoms (principal); I10 Essential (primary) hypertension; N39.0 Urinary tract infection, site not specified; I70.90 Unspecified atherosclerosis
CPT/HCPCS: 36415; 82533; 83935; 84300; 84436; 84443; 84480

== ENCOUNTER → 2023-02-22 | Outpatient (CLI) | payer BC | END | disposition home or self-care (01) | LOC: XYW 15:26 | PROVIDERS: ATTEND Student in an Organized Health Care Education/Training Program | DX: R06.09 Other forms of dyspnea (principal) | CPT/HCPCS: 93306 ==

== ENCOUNTER → 2023-05-12 | Outpatient (CLI) | payer BC ==
[~2023-05-12] VITALS: Ht 170.2 cm; Wt 104.3 kg
[2023-05-12] MEDS: ADENOSINE 88 MG in GIVE UN-DILUTED 0 ML IV ONE (09:37)
== END | disposition home or self-care (01) ==
LOC: XYW 08:03
PROVIDERS: ATTEND Student in an Organized Health Care Education/Training Program
DX: R06.09 Other forms of dyspnea (principal); I10 Essential (primary) hypertension; E78.5 Hyperlipidemia, unspecified; E87.1 Hypo-osmolality and hyponatremia; E66.01 Morbid (severe) obesity due to excess calories; Z68.36 Body mass index [BMI] 36.0-36.9, adult
CPT/HCPCS: 78452; 93017; A9500; J0153